=== PATIENT | male | born 1980 | race African-American/Black ===

== ENCOUNTER 2017-11-28 05:12 | Emergency (ER) | payer OTHER ==
[~2017-11-28] VITALS: Ht 160 cm; Wt 62.8 kg
[2017-11-28 05:42] LABS: PLATELET COUNT 222 K/uL (142-355)
[2017-11-28 05:49] LABS: POTASSIUM 3.3 mmol/L (3.6-5.2)
[2017-11-28 10:07] VITALS: TEMP 98.2
[2017-11-28 10:14] VITALS: BP 112/78
== END 2017-11-28 10:50 | disposition short-term general hospital (02) ==
LOC: ED 05:12
DX: R10.31 Right lower quadrant pain (principal)
CPT/HCPCS: 36415; 80053; 81000; 85027; 99283

== ENCOUNTER 2017-11-28 11:00 | Outpatient (CLI) | payer OTHER | END 2017-11-28 12:38 | disposition short-term general hospital (02) | LOC: AMB 11:00 | DX: R10.31 Right lower quadrant pain (principal) | CPT/HCPCS: A0425; A0427 ==